=== PATIENT | female | born 1990 | race African-American/Black ===

== ENCOUNTER 2017-03-18 19:57 | Inpatient (IN) | payer OTHER ==
[~2017-03-18] VITALS: Ht 165.1 cm; Wt 85.7 kg
[2017-03-18] MEDS ORDERED: METHYLPREDNISOLONE SOD SUCC 125 MG/2 ML VIAL IV STA (20:05)
[2017-03-18] MEDS ORDERED: MAGNESIUM 2 G PREMIX 50 ML IV ONE (20:15)
[2017-03-18] MEDS ORDERED: KETAMINE HCL 50 MG/ML 10ML IV ONE ×3 (20:15→21:15)
[2017-03-18] MEDS ORDERED: EPINEPHRINE 1:1000 1 MG/ML AMP IM ONE (20:15)
[2017-03-18] MEDS ORDERED: RACEPINEPHRINE 2.25% 0.5ML NEB VIAL HHN ONE (20:30)
[2017-03-18] MEDS ORDERED: ALBUTEROL (0.083%) 2.5MG/3ML NEB HHN SCH (20:30)
[2017-03-18] MEDS ORDERED: ONDANSETRON HCL 4MG/2ML VIAL IV ONE (20:45)
[2017-03-18] MEDS ORDERED: ALBUTEROL (0.5%) 2.5MG/0.5ML NEB HHN ONE (21:00)
[2017-03-18] MEDS ORDERED: MIDAZOLAM HCL 2 MG/2 ML VIAL IV ONE (21:00)
[2017-03-18] MEDS ORDERED: MIDAZOLAM HCL 50 MG in DEXTROSE 5% WATER 40 ML IV ONE ×3 (21:00→22:15)
[2017-03-18] MEDS ORDERED: SUCCINYLCHOLINE CHLORIDE 200MG/10ML VIAL IV ONE ×2 (21:00)
[2017-03-18] MEDS ORDERED: ETOMIDATE 2MG/ML 10ML VIAL IV ONE ×2 (21:00)
[2017-03-18 21:17] LABS: BASOPHILS % 0.3 % (0.0-2.0); CARBON DIOXIDE 23 mEq/L (21-32); CHLORIDE 104 mEq/L (98-107); EOSINOPHILS % 1.3 % (0.0-5.0); HEMATOCRIT. 36.1 % (36.0-48.0); HEMOGLOBIN. 11.7 g/dL (12.0-16.0); LYMPHOCYTES % 44.3 % (20.0-50.0); MEAN CORPUSCULAR HEMOGLOBIN 25.9 pg (28.0-32.0); MEAN CORPUSCULAR VOLUME 80.1 fL (81.0-99.0); MEAN PLATELET VOLUME 7.7 fl (7.4-10.4); MONOCYTES % 12.7 % (2.0-8.0); NEUTROPHILS % 41.4 % (40.0-76.0); PLATELET 322 x1000/uL (130-400); PROTHROMBIN TIME 10.1 sec (9.4-11.6); RED BLOOD CELL COUNT 4.51 mill/uL (4.2-5.4); RED CELL DISTRIBUTION WIDTH 14.5 % (11.6-14.6)
[2017-03-18] MEDS ORDERED: DEXT 5%/0.45% NACL 1000ML 1,000 ML IV SCH (21:43)
[2017-03-18] MEDS ORDERED: NITROGLYCERIN 0.4MG TABLET SL SL PRN (21:45)
[2017-03-18] MEDS ORDERED: MAGNESIUM/ALUMINUM HYDROXIDE/SIMETHICONE 30ML UDC PO PRN (21:45)
[2017-03-18] MEDS ORDERED: LORAZEPAM 2MG/ML CPJ IV PRN (21:45)
[2017-03-18] MEDS ORDERED: CLONIDINE 0.1MG TABLET PO PRN (21:45)
[2017-03-18] MEDS ORDERED: DIPHENHYDRAMINE 50MG/ML VIAL IV PRN (21:45)
[2017-03-18] MEDS ORDERED: IPRATROPIUM/ALBUTEROL 0.5-3(2.5)MG/3ML NEB INH PRN (21:45)
[2017-03-18] MEDS ORDERED: ENOXAPARIN 40MG/0.4ML SYR SUBCUT SCH (21:45)
[2017-03-18] MEDS ORDERED: NA PHOS,M-B/NA PHOS,DI-BA ENEMA 118ML PR PRN (21:45)
[2017-03-18] MEDS ORDERED: MIDAZOLAM HCL 50 MG in DEXTROSE 5% WATER 40 ML IV SCH ×2 (21:45→23:00)
[2017-03-18] MEDS ORDERED: IPRATROPIUM/ALBUTEROL 0.5-3(2.5)MG/3ML NEB HHN SCH (21:45)
[2017-03-18] MEDS ORDERED: DEXMEDETOMIDINE 400 MCG/100 ML 100 ML IV PRN (22:15)
[2017-03-18] MEDS ORDERED: FENTANYL CITRATE/PF 500 MCG in SODIUM CHLORIDE 0.9% 40 ML IV PRN (22:45)
[2017-03-18] MEDS ORDERED: MIDAZOLAM HCL 50 MG in DEXTROSE 5% WATER 40 ML IV PRN (22:45)
[2017-03-18] MEDS ORDERED: KCL 20MEQ/100ML PREMIX 100 ML IV SCH (23:00)
[2017-03-18 23:22] LABS: BG BASE EXCESS -2.2 mmol/L (-2.0-2.0); BG CARBOXYHEMOGLOBIN 0.3 % (0.5-1.5); BG DEOXYHEMOGLOBIN 0.1 % (0.0-5.0); BG FRACTION INSPIRED OXYGEN 100; BG HCO3 ACT 23.3 mmol/L (22.0-26.0); BG METHEMOGLOBIN 0.5 % (0.0-1.5); BG OXYGEN SATURATION 99.9 % (92.0-98.5); BG OXYHEMOGLOBIN 99.1 % (94.0-97.0); BG PCO2 42.3 mmHg (35.0-45.0); BG PH 7.358 (7.350-7.450); BG PO2 385.1 mmHg (75.0-100.0); BG SAMPLE SITE LEFT RADIAL; BG TIDAL VOLUME(mL) 500 mL; BG TOTAL HEMOGLOBIN 13.2 g/dL (12.0-18.0); BG VENT MODE VENT - A/C; BG VENT RATE 12 set
[2017-03-18] MEDS: FENTANYL CITRATE/PF 500 MCG in SODIUM CHLORIDE 0.9% 40 ML IV PRN (23:24)
[2017-03-19] VITALS (81 sets, daily range): BP systolic 118–147; BP diastolic 52–116
[2017-03-19] MEDS ORDERED: KETAMINE HCL 50 MG/ML 10ML IV PRN (01:00)
[2017-03-19] MEDS ORDERED: DEXT 5%/0.9% NACL KCL 30MEQ/L 1,000 ML IV SCH (01:14)
[2017-03-19] MEDS ORDERED: SODIUM CHLORIDE 0.9% IV SCH ×3 (01:30→19:00)
[2017-03-19] MEDS ORDERED: KETAMINE HCL IV SCH ×3 (01:30→19:00)
[2017-03-19] MEDS: POTASSIUM CHLORIDE INJ 30 MEQ in DEXT 5%/0.9% NACL 1,000 ML IV SCH ×3 (03:26→23:18)
[2017-03-19] MEDS: IPRATROPIUM/ALBUTEROL 0.5-3(2.5)MG/3ML NEB HHN SCH ×6 (04:42→23:45)
[2017-03-19] MEDS: METHYLPREDNISOLONE SOD SUCC 125 MG/2 ML VIAL IV SCH ×3 (05:40→21:26)
[2017-03-19 06:29] LABS: CLARITY URINE CLOUDY (CLEAR); COLOR URINE YELLOW (YELLOW); GLUCOSE URINE NEGATIVE (NEGATIVE); KETONES URINE NEGATIVE (NEGATIVE); LEUKOCYTE ESTERASE URINE NEGATIVE (NEGATIVE); NITRITE URINE NEGATIVE (NEGATIVE); OCCULT BLOOD URINE NEGATIVE (NEGATIVE); PH URINE 5.5 (4.5-8.0); PROTEIN URINE NEGATIVE (NEGATIVE); SPECIFIC GRAVITY URINE 1.026 (1.005-1.030); UROBILINOGEN URINE 0.2 E.U./dL (0.2-1.0)
[2017-03-19] MEDS: FENTANYL CITRATE/PF 500 MCG in SODIUM CHLORIDE 0.9% 40 ML IV PRN ×3 (06:43→21:54)
[2017-03-19 06:59] LABS: *AMPHETAMINES SCREEN URINE NEGATIVE (NEGATIVE); *BARBITURATES SCREEN URINE NEGATIVE (NEGATIVE); *COCAINE SCREEN URINE NEGATIVE (NEGATIVE); CANNABINOID URINE SCREEN NEGATIVE (NEGATIVE); METHADONE URINE SCREEN NEGATIVE (NEGATIVE); OPIATES URINE SCREEN NEGATIVE (NEGATIVE); PHENCYCLIDINE URINE SCREEN NEGATIVE (NEGATIVE)
[2017-03-19 07:00] LABS: *BENZODIAZEPINES SCREEN URINE PRESUMTIVE POSITIVE (NEGATIVE)
[2017-03-19] MEDS: MIDAZOLAM HCL 50 MG in DEXTROSE 5% WATER 40 ML IV PRN ×3 (07:06→21:54)
[2017-03-19 08:22] LABS: HEMATOCRIT. 36.3 % (36.0-48.0); HEMOGLOBIN. 11.6 g/dL (12.0-16.0); MEAN CORPUSCULAR HEMOGLOBIN 25.7 pg (28.0-32.0); PLATELET 288 x1000/uL (130-400); RED BLOOD CELL COUNT 4.54 mill/uL (4.2-5.4); RED CELL DISTRIBUTION WIDTH 14.8 % (11.6-14.6)
[2017-03-19] MEDS: FAMOTIDINE 20MG/2ML VIAL IV SCH ×2 (08:35→20:24)
[2017-03-19] MEDS: ENOXAPARIN 30MG/0.3ML SYR SUBCUT SCH ×2 (08:35→20:24)
[2017-03-19 08:50] LABS: CARBON DIOXIDE 23 mEq/L (21-32); CHLORIDE 105 mEq/L (98-107)
[2017-03-19 08:55] LABS: BG BASE EXCESS -3.5 mmol/L (-2.0-2.0); BG CARBOXYHEMOGLOBIN 0.4 % (0.5-1.5); BG FRACTION INSPIRED OXYGEN 40; BG HCO3 ACT 22.2 mmol/L (22.0-26.0); BG METHEMOGLOBIN 0.3 % (0.0-1.5); BG OXYHEMOGLOBIN 98.3 % (94.0-97.0); BG PCO2 42.2 mmHg (35.0-45.0); BG PH 7.338 (7.350-7.450); BG SAMPLE SITE RIGHT RADIAL; BG TIDAL VOLUME(mL) 500 mL; BG TOTAL HEMOGLOBIN 12.2 g/dL (12.0-18.0); BG VENT MODE VENT - A/C; BG VENT RATE 12 set
[2017-03-19] MEDS: BUDESONIDE 0.5MG/2ML NEB HHN SCH ×2 (08:59→20:20)
[2017-03-19] MEDS ORDERED: FAMOTIDINE 20MG/2ML VIAL IV SCH (09:00)
[2017-03-19] MEDS: ONDANSETRON HCL 4MG/2ML VIAL IV PRN (11:42)
[2017-03-19 16:51] LABS: PLATELET ESTIMATE NORMAL
[2017-03-20] VITALS (75 sets, daily range): BP systolic 48–169; BP diastolic 32–129
[2017-03-20] MEDS: IPRATROPIUM/ALBUTEROL 0.5-3(2.5)MG/3ML NEB HHN SCH ×6 (03:36→23:45)
[2017-03-20] MEDS: MIDAZOLAM HCL 50 MG in DEXTROSE 5% WATER 40 ML IV PRN ×2 (04:01→10:10)
[2017-03-20] MEDS: FENTANYL CITRATE/PF 500 MCG in SODIUM CHLORIDE 0.9% 40 ML IV PRN ×2 (05:19→10:08)
[2017-03-20] MEDS: METHYLPREDNISOLONE SOD SUCC 125 MG/2 ML VIAL IV SCH (06:08)
[2017-03-20 06:20] LABS: CARBON DIOXIDE 27 mEq/L (21-32); CHLORIDE 107 mEq/L (98-107)
[2017-03-20 07:13] LABS: HEMATOCRIT. 32.9 % (36.0-48.0); HEMOGLOBIN. 10.4 g/dL (12.0-16.0); MEAN CORPUSCULAR HEMOGLOBIN 25.4 pg (28.0-32.0); MEAN CORPUSCULAR VOLUME 80.2 fL (81.0-99.0); PLATELET 291 x1000/uL (130-400); RED CELL DISTRIBUTION WIDTH 14.8 % (11.6-14.6)
[2017-03-20] MEDS: BUDESONIDE 0.5MG/2ML NEB HHN SCH ×2 (07:46→20:23)
[2017-03-20] MEDS: FAMOTIDINE 20MG/2ML VIAL IV SCH ×2 (08:14→21:00)
[2017-03-20] MEDS: ENOXAPARIN 30MG/0.3ML SYR SUBCUT SCH ×2 (08:14→21:00)
[2017-03-20 08:32] LABS: BG CARBOXYHEMOGLOBIN 0.1 % (0.5-1.5); BG DEOXYHEMOGLOBIN 2.2 % (0.0-5.0); BG FRACTION INSPIRED OXYGEN 30; BG HCO3 ACT 25.9 mmol/L (22.0-26.0); BG METHEMOGLOBIN 0.1 % (0.0-1.5); BG OXYGEN SATURATION 97.8 % (92.0-98.5); BG OXYHEMOGLOBIN 97.6 % (94.0-97.0); BG PCO2 53.1 mmHg (35.0-45.0); BG PH 7.306 (7.350-7.450); BG PO2 108.1 mmHg (75.0-100.0); BG SAMPLE SITE RIGHT RADIAL; BG TIDAL VOLUME(mL) 500 mL; BG TOTAL HEMOGLOBIN 11.7 g/dL (12.0-18.0); BG VENT MODE VENT - A/C; BG VENT RATE 12 set
[2017-03-20 08:52] LABS: PLATELET ESTIMATE NORMAL
[2017-03-20] MEDS: POTASSIUM CHLORIDE INJ 30 MEQ in DEXT 5%/0.9% NACL 1,000 ML IV SCH (10:11)
[2017-03-20] MEDS: LEVOFLOXACIN 750MG PREMIX 150 ML IV SCH (11:34)
[2017-03-20 12:45] LABS: BG BASE EXCESS -2.9 mmol/L (-2.0-2.0); BG CARBOXYHEMOGLOBIN 0.3 % (0.5-1.5); BG DEOXYHEMOGLOBIN 3.9 % (0.0-5.0); BG FRACTION INSPIRED OXYGEN 30; BG HCO3 ACT 22.7 mmol/L (22.0-26.0); BG METHEMOGLOBIN 0.6 % (0.0-1.5); BG OXYGEN SATURATION 96.1 % (92.0-98.5); BG OXYHEMOGLOBIN 95.2 % (94.0-97.0); BG PCO2 42.7 mmHg (35.0-45.0); BG PH 7.343 (7.350-7.450); BG PO2 85.1 mmHg (75.0-100.0); BG PRESSURE SUPPORT 6; BG SAMPLE SITE RIGHT RADIAL; BG TOTAL HEMOGLOBIN 12.1 g/dL (12.0-18.0); BG VENT MODE VENT - CPAP
[2017-03-20] MEDS: MORPHINE SULFATE 4 MG/ML CPJ (NOT FOR IM USE) IV PRN ×2 (15:10→23:36)
[2017-03-20] MEDS: METHYLPREDNISOLONE SOD SUCC 40 MG/ML VIAL IV SCH (17:23)
[2017-03-20] MEDS: ONDANSETRON HCL 4MG/2ML VIAL IV PRN (18:11)
[2017-03-20] MEDS: GUAIFENESIN 200MG/10ML SUGAR FREE UDC PO PRN (18:48)
[2017-03-21] VITALS (29 sets, daily range): BP systolic 94–154; BP diastolic 15–96
[2017-03-21] MEDS: LORAZEPAM 2MG/ML CPJ IV PRN ×2 (00:31→16:03)
[2017-03-21] MEDS: ONDANSETRON HCL 4MG/2ML VIAL IV PRN ×2 (00:35→09:31)
[2017-03-21] MEDS ORDERED: SODIUM CHLORIDE 0.9% IV SCH (01:30)
[2017-03-21] MEDS ORDERED: KETAMINE HCL IV SCH (01:30)
[2017-03-21] MEDS: IPRATROPIUM/ALBUTEROL 0.5-3(2.5)MG/3ML NEB HHN SCH ×4 (04:33→15:31)
[2017-03-21 06:15] LABS: BASOPHILS % 0.2 % (0.0-2.0); HEMATOCRIT. 32.3 % (36.0-48.0); HEMOGLOBIN. 10.3 g/dL (12.0-16.0); LYMPHOCYTES % 8.9 % (20.0-50.0); MEAN CORPUSCULAR HEMOGLOBIN 25.5 pg (28.0-32.0); MEAN CORPUSCULAR VOLUME 79.8 fL (81.0-99.0); MONOCYTES % 6.5 % (2.0-8.0); NEUTROPHILS % 84.4 % (40.0-76.0); PLATELET 257 x1000/uL (130-400); RED BLOOD CELL COUNT 4.05 mill/uL (4.2-5.4); RED CELL DISTRIBUTION WIDTH 14.9 % (11.6-14.6)
[2017-03-21 06:29] LABS: CARBON DIOXIDE 27 mEq/L (21-32); CHLORIDE 102 mEq/L (98-107)
[2017-03-21] MEDS: BUDESONIDE 0.5MG/2ML NEB HHN SCH ×2 (07:28→20:00)
[2017-03-21] MEDS: ENOXAPARIN 30MG/0.3ML SYR SUBCUT SCH ×2 (09:00→20:30)
[2017-03-21] MEDS: METHYLPREDNISOLONE SOD SUCC 40 MG/ML VIAL IV SCH ×2 (09:31→16:09)
[2017-03-21] MEDS: FAMOTIDINE 20MG/2ML VIAL IV SCH ×2 (09:31→20:29)
[2017-03-21] MEDS: GUAIFENESIN 200MG/10ML SUGAR FREE UDC PO PRN (09:31)
[2017-03-21] MEDS: LEVOFLOXACIN 750MG PREMIX 150 ML IV SCH (10:54)
[2017-03-21] MEDS: MORPHINE SULFATE 4 MG/ML CPJ (NOT FOR IM USE) IV PRN (11:06)
[2017-03-21] MEDS ORDERED: RACEPINEPHRINE 2.25% 0.5ML NEB VIAL ONE (16:05)
[2017-03-21] MEDS: ACETAMINOPHEN 325MG TABLET PO PRN (22:11)
[2017-03-22] VITALS (13 sets, daily range): BP systolic 119–161; BP diastolic 68–99
[2017-03-22] MEDS: IPRATROPIUM/ALBUTEROL 0.5-3(2.5)MG/3ML NEB HHN SCH ×3 (00:16→09:00)
[2017-03-22] MEDS: METHYLPREDNISOLONE SOD SUCC 40 MG/ML VIAL IV SCH (08:06)
[2017-03-22] MEDS: FAMOTIDINE 20MG/2ML VIAL IV SCH (08:06)
[2017-03-22] MEDS: ENOXAPARIN 30MG/0.3ML SYR SUBCUT SCH (08:06)
[2017-03-22] MEDS: ACETAMINOPHEN 325MG TABLET PO PRN (08:16)
[2017-03-22] MEDS: BUDESONIDE 0.5MG/2ML NEB HHN SCH (09:00)
[2017-03-22] MEDS: LEVOFLOXACIN 750MG PREMIX 150 ML IV SCH ×2 (11:00→11:17)
[2017-03-22] MEDS ORDERED: BISACODYL 5MG TABLET PO PRN (12:00)
[2017-03-23] MEDS ORDERED: PREDNISONE 20MG TABLET PO SCH (08:20)
== END 2017-03-22 12:20 | disposition home or self-care (01) | DRG 871 ==
LOC: ER 20:56 → CVICU 22:00 → ENRESERV 22:18 → CVICU 03-21 19:13
PROVIDERS: ADMIT Internal Medicine; ATTEND Internal Medicine
PROC: 5A1945Z Respiratory Ventilation, 24-96 Consecutive Hours (ICD-10-PCS; principal; 2017-03-18)
PROC: 0BH17EZ Insertion of Endotracheal Airway into Trachea, Via Natural or Artificial Opening (ICD-10-PCS; 2017-03-18)
DX: A41.9 Sepsis, unspecified organism (principal); J96.00 Acute respiratory failure, unspecified whether with hypoxia or hypercapnia; J18.9 Pneumonia, unspecified organism; J45.901 Unspecified asthma with (acute) exacerbation; E87.6 Hypokalemia; Z88.2 Allergy status to sulfonamides; Z88.8 Allergy status to other drugs, medicaments and biological substances
CPT/HCPCS: 31500; 36415; 36600; 71010; 80048; 80053; 80305; 81001; 82375; 82805; 83036; 84443; 85025; 85610; 87040; 87070; 87804; 93970; 94002; 94003; 94640; 96365; 96366; 96372; 96375; 99291; A6261; G0482; J0171; J0330; J1650; J1956; J2060; J2250; J2270; J2405; J2920; J2930; J3010; J3475; J3480; J3490; J7040; J7042; J7050; J7060; J7611; J7620; J7626; Q9957; A4315

== ENCOUNTER 2017-03-28 10:37 | Inpatient (IN) | payer OTHER ==
[~2017-03-28] VITALS: Ht 162.6 cm; Wt 85.0 kg
[2017-03-28] MEDS ORDERED: MAGNESIUM 2 G PREMIX 50 ML IV STA (11:06)
[2017-03-28] MEDS ORDERED: IPRATROPIUM BROMIDE (0.02%) 0.5MG/2.5ML NEB HHN STA (11:06)
[2017-03-28] MEDS ORDERED: ALBUTEROL (0.083%) 2.5MG/3ML NEB HHN STA (11:06)
[2017-03-28] MEDS ORDERED: METHYLPREDNISOLONE SOD SUCC 125 MG/2 ML VIAL IV STA (11:06)
[2017-03-28] MEDS ORDERED: METHYLPREDNISOLONE SOD SUCC 125 MG/2 ML VIAL ONE (11:13)
[2017-03-28] MEDS ORDERED: MAGNESIUM 1 G PREMIX 200 ML IV ONE (11:14)
[2017-03-28] MEDS ORDERED: EPINEPHRINE 1:1000 1 MG/ML AMP INJ ONE ×2 (11:15→19:45)
[2017-03-28] MEDS ORDERED: RACEPINEPHRINE 2.25% 0.5ML NEB VIAL HHN ONE ×2 (11:15→20:15)
[2017-03-28] MEDS ORDERED: RACEPINEPHRINE 2.25% 0.5ML NEB VIAL ONE (11:18)
[2017-03-28 11:50] LABS: BASOPHILS % 0.5 % (0.0-2.0); HEMATOCRIT. 39.2 % (36.0-48.0); LYMPHOCYTES % 46.2 % (20.0-50.0); MEAN CORPUSCULAR HEMOGLOBIN 26.4 pg (28.0-32.0); MEAN CORPUSCULAR VOLUME 79.9 fL (81.0-99.0); MEAN PLATELET VOLUME 7.3 fl (7.4-10.4); MONOCYTES % 10.3 % (2.0-8.0); PLATELET 372 x1000/uL (130-400)
[2017-03-28] MEDS ORDERED: MAGNESIUM/ALUMINUM HYDROXIDE/SIMETHICONE 30ML UDC PO PRN (12:00)
[2017-03-28] MEDS ORDERED: ACETAMINOPHEN 325MG TABLET PO PRN (12:00)
[2017-03-28] MEDS ORDERED: SODIUM CHLORIDE 0.9% 1,000 ML IV ONE (12:00)
[2017-03-28] MEDS ORDERED: GUAIFENESIN 200MG/10ML SUGAR FREE UDC PO PRN (12:00)
[2017-03-28] MEDS ORDERED: NA PHOS,M-B/NA PHOS,DI-BA ENEMA 118ML PR PRN (12:00)
[2017-03-28] MEDS ORDERED: CLONIDINE 0.1MG TABLET PO PRN (12:00)
[2017-03-28] MEDS ORDERED: AZITHROMYCIN 500 MG in DEXT 5% WATER 250 ML IV SCH (12:00)
[2017-03-28] MEDS ORDERED: ONDANSETRON HCL 4MG/2ML VIAL IV PRN (12:00)
[2017-03-28] MEDS ORDERED: DOCUSATE SODIUM 100MG CAPSULE PO PRN (12:00)
[2017-03-28] MEDS ORDERED: DIPHENHYDRAMINE 50MG/ML VIAL IV PRN (12:00)
[2017-03-28] MEDS ORDERED: IPRATROPIUM/ALBUTEROL 0.5-3(2.5)MG/3ML NEB INH PRN (12:00)
[2017-03-28] MEDS ORDERED: IPRATROPIUM/ALBUTEROL 0.5-3(2.5)MG/3ML NEB HHN SCH (12:00)
[2017-03-28] MEDS ORDERED: LORAZEPAM 2MG/ML CPJ IV PRN (12:00)
[2017-03-28 12:01] LABS: PARTIAL THROMBOPLASTIN TIME 25.9 sec (23.4-31.0)
[2017-03-28 12:02] LABS: HCG SCREEN NEGATIVE
[2017-03-28 12:08] LABS: CARBON DIOXIDE 26 mEq/L (21-32); CHLORIDE 100 mEq/L (98-107); CREATINE KINASE 61 IU/L (26-192); TROPONIN I < 0.02 ng/mL (0.00-0.04)
[2017-03-28 12:13] LABS: CREATINE KINASE MB FRACTION < 0.5 ng/mL (0.5-3.6)
[2017-03-28 15:07] LABS: CLARITY URINE CLEAR (CLEAR); COLOR URINE YELLOW (YELLOW); GLUCOSE URINE NEGATIVE (NEGATIVE); KETONES URINE NEGATIVE (NEGATIVE); LEUKOCYTE ESTERASE URINE NEGATIVE (NEGATIVE); NITRITE URINE NEGATIVE (NEGATIVE); OCCULT BLOOD URINE 2+ (NEGATIVE); PROTEIN URINE NEGATIVE (NEGATIVE); SPECIFIC GRAVITY URINE 1.016 (1.005-1.030); UROBILINOGEN URINE 0.2 E.U./dL (0.2-1.0)
[2017-03-28] MEDS ORDERED: POTASSIUM CHLORIDE 20MEQ TABLET SR PO NR (16:00)
[2017-03-28] MEDS ORDERED: METHYLPREDNISOLONE SOD SUCC 125 MG/2 ML VIAL IV ONE (18:00)
[2017-03-28] MEDS ORDERED: METHYLPREDNISOLONE SOD SUCC 125 MG/2 ML VIAL IV NR (19:00)
[2017-03-28] MEDS ORDERED: EPINEPHRINE 0.1MG/ML (1:10,000) 10ML SYR ONE (19:52)
[2017-03-28] MEDS ORDERED: EPINEPHRINE 1:1000 1 MG/ML AMP INJ SCH (20:00)
[2017-03-28 20:30] VITALS: BP 123/58
[2017-03-28] MEDS ORDERED: ENOXAPARIN 40MG/0.4ML SYR SUBCUT SCH (21:00)
[2017-03-28] MEDS ORDERED: ZOLPIDEM TARTRATE 5MG TABLET PO PRN (21:00)
[2017-03-28] MEDS ORDERED: FAMOTIDINE 20MG/2ML VIAL IV SCH (21:30)
[2017-03-28] MEDS ORDERED: MONTELUKAST SODIUM 10MG TABLET PO SCH (21:30)
[2017-03-28] MEDS ORDERED: GUAIFENESIN/DM 600MG/30MG ER TAB 12HR PO SCH (21:30)
[2017-03-28] MEDS ORDERED: METHYLPREDNISOLONE SOD SUCC 125 MG/2 ML VIAL IV SCH (22:00)
[2017-03-29] MEDS ORDERED: BUDESONIDE 0.5MG/2ML NEB HHN SCH
[2017-03-29] MEDS ORDERED: IPRATROPIUM/ALBUTEROL 0.5-3(2.5)MG/3ML NEB HHN SCH
[2017-03-29] MEDS ORDERED: LORATADINE 10MG TABLET PO SCH (09:00)
== END 2017-03-28 21:15 | disposition left against medical advice (07) | DRG 189 ==
LOC: EDBEDREQ 11:48 → EDBEDREQTM 11:55 → ER 12:42 → 5EST 12:49 → EDBEDREQTM 13:34 → EDBEDREQSVC 13:34 → EDBEDREQ 13:34 → EDBEDREQSVC 13:35 → EDBEDREQ 13:35 → SUPCPDRO 15:53 → ENRESERV 19:43
PROVIDERS: ADMIT Internal Medicine; ATTEND Internal Medicine
PROC: 5A09357 Assistance with Respiratory Ventilation, Less than 24 Consecutive Hours, Continuous Positive Airway Pressure (ICD-10-PCS; principal; 2017-03-28)
DX: J96.00 Acute respiratory failure, unspecified whether with hypoxia or hypercapnia (principal); D72.1 Eosinophilia; J45.901 Unspecified asthma with (acute) exacerbation; E87.6 Hypokalemia; R06.1 Stridor; Z53.21 Procedure and treatment not carried out due to patient leaving prior to being seen by health care provider; D64.9 Anemia, unspecified; G89.4 Chronic pain syndrome; J38.3 Other diseases of vocal cords; Z88.8 Allergy status to other drugs, medicaments and biological substances; Z87.01 Personal history of pneumonia (recurrent); Z79.899 Other long term (current) drug therapy; Z88.2 Allergy status to sulfonamides
CPT/HCPCS: 36415; 71010; 80053; 81001; 81025; 82550; 82553; 83690; 83880; 84443; 84484; 84703; 85025; 85610; 85730; 87086; 93005; 94640; 94660; 94664; 96365; 96366; 96367; 96375; 99291; J0171; J0456; J2060; J2930; J3475; J7030; J7060; J7611

== ENCOUNTER 2018-10-31 17:09 | Emergency (ER) | payer BC, OTHER ==
[~2018-10-31] VITALS: Ht 162.6 cm; Wt 87.0 kg
[2018-10-31] MEDS ORDERED: ONDANSETRON HCL 4MG/2ML INJ IV STA (20:40)
[2018-10-31] MEDS ORDERED: SODIUM CHLORIDE 0.9% 1,000 ML IV ONE (20:40)
[2018-10-31] MEDS ORDERED: KETOROLAC 30MG/ML VIAL IV STA (20:40)
[2018-10-31 21:04] LABS: BASOPHILS % 0.3 % (0.0-2.0); HEMATOCRIT. 38.8 % (36.0-48.0); HEMOGLOBIN. 12.7 g/dL (12.0-16.0); LYMPHOCYTES % 9.2 % (20.0-50.0); MEAN CORPUSCULAR VOLUME 82.2 fL (81.0-99.0); MEAN PLATELET VOLUME 7.4 fl (7.4-10.4); MONOCYTES % 1.8 % (2.0-8.0); NEUTROPHILS % 88.7 % (40.0-76.0); PLATELET 327 x1000/uL (130-400); RED BLOOD CELL COUNT 4.72 mill/uL (4.2-5.4); RED CELL DISTRIBUTION WIDTH 14.9 % (11.6-14.6)
[2018-10-31 21:10] LABS: CHLORIDE 106 mEq/L (98-107)
[2018-11-01 00:05] VITALS: BP 120/65
== END 2018-11-01 00:06 | disposition home or self-care (01) ==
LOC: ER 17:09
DX: N83.201 Unspecified ovarian cyst, right side (principal); D21.9 Benign neoplasm of connective and other soft tissue, unspecified; J45.909 Unspecified asthma, uncomplicated; Z90.89 Acquired absence of other organs; Z98.890 Other specified postprocedural states; Z88.2 Allergy status to sulfonamides; Z88.8 Allergy status to other drugs, medicaments and biological substances; Z88.1 Allergy status to other antibiotic agents
CPT/HCPCS: 36415; 76830; 76856; 80053; 81025; 85025; 85610; 96374; 96375; 99284; J1885; J2405; J7030